=== PATIENT | male | born 1965 | race African-American/Black ===

== ENCOUNTER 2019-04-22 18:05 | Inpatient (IN) | payer OTHER ==
--- NOTE | 2019-04-22 19:15 | HP ---
COWS - Scale Resting Pulse: 1= OR 81-100 Sweatin= Chills/Flushing Restless Observation: 0= Sits Still Pupil Size: 0= Normal to Room Light (Pupils = 1 mm) Bone or Joint Aches: 0= None Runny Nose/ Eye Tearin= None GI Upset > 30mins: 2= Nausea/Diarrhea (Nausea w/o diarrhea) Tremor Observation: 2= Slight Tremor Visible Yawning Observation: 0= None Anxiety or Irritability: 1=Feels Anxious/Irritable Goose Flesh Skin: 0=Smooth Skin COWS Score: 7 CIWA Score Nausea/Vomitin Muscle Tremors: 3 Anxiety: 1-Mildly Anxious Agitation: 0-Normal Activity Paroxysmal Sweats: 2 (Slightly increased facial moisture) Orientation: 0-Oriented Tacttile Disturbances: 0-None Auditory Disturbances: 0-None Visual Disturbances: 0-None Headache: 0-None Present CIWA-Ar Total Score: 8 - Admission Criteria OASAS Guidelines: Admission for Medically Managed Detox: Requires at least one of the followin. CIWA greater than 12 2. Seizures within the past 24 hours 3. Delirium tremens within the past 24 hours 4. Hallucinations within the past 24 hours 5. Acute intervention needed for co occurring medical disorder 6. Acute intervention needed for co occurring psychiatric disorder 7. Severe withdrawal that cannot be handled at a lower level of care (continued vomiting, continued diarrhea, abnormal vital signs) requiring intravenous medication and/or fluids 8. Patient presents the following: Acute intervention needed for co-occurring med or psych disorder (HIV+; IDDM; TRU 0.066) Admission Criteria Met: Admission criteria met Admitting History and Physical - Smoking History Smoking history: Current every day smoker Have you smoked in the past 12 months: Yes Aproximately how many cigarettes per day: 20 Admission ROS S - HPI Chief Complaint: States I need detox. I'm tired of getting high. Allergies/Adverse Reactions: Allergies Allergy/AdvReac Type Severity Reaction Status Date / Time No Known Allergies Allergy Verified 04/22/19 19:38 History of Present Illness: 53 you presents seeking detox from heroin and alcohol. TRU: 0.066 UTox: + FEN/MOP BGM: 473 Longest sobriety: Only when incarcerated or in inpatient treatment. Denies seizures, blackouts, or overdoses. Alcohol use began at age 13. Currently using 3 - 16 oz beers daily. Occ drinks 1 pint liquor 1-2x/week. Last drink 1 hr. ago. [facility] has a Narcan kit at home. Heroin use began at age 13. Currently using 10 bags/day. Nasally. last used 1 hr ago. MMTP a few years ago. Suboxone - [facility] last took 2 weeks. [facility] supply was stolen. Discussed placing patient back on Suboxone and informed that restart would not start until 04/22, when withdrawal symptoms indicate moderate withdrawal w/ significant objective symptoms. Patient verbalizes an understanding that suboxone may not be started until after 10 am. Nicotine use began at age 13. Smokes 1 PPD. Cocaine use 2-4 days ago. PMHx: IDDM; HIV+; Asthma; Anemia; Pancreatitis. States not always compliant w/ medications. Pharmacy closed and will need to be called for medication evaluation. 11/28/18: EKG - Abn. Current EKG - wnl MHHx: Denies depression. Denies thoughts of harming self or others. SHx: Domiciles. HASA. [facility] has ACS issues r/t 5 year old daughter. Patient Name: Jimy Mason Date: 1965 Address: [address] [place] [address] Sex: Male Rx Written Rx Dispensed Drug Quantity Days Supply Prescriber Name buprenorphine-naloxone 8-2 mg sl film 90 30 Jayy Brandon B Payment Method Insurance * [facility] buprenorphine-naloxone 8-2 mg sl film 90 30 Jayy Brandon B Payment Method Insurance * [facility] buprenorphine-naloxone 8-2 mg sl film 90 30 Jayy Brandon B Payment Method Insurance * [facility] buprenorphine-naloxone 8-2 mg sl film 90 30 Jayy Brandon B Payment Method Insurance * [facility] buprenorphine-naloxone 8-2 mg sl film 90 30 Jayy Brandon B Payment Method [facility]-naloxone 8-2 mg sl film 90 30 Jayy Brandon B Payment Method Insurance * [facility]upren[facility]ine-naloxone 8-2 mg sl film 90 30 Jayy Brandon B Payment Method Insurance * [facility]uprenorphine-naloxone 8-2 mg sl film 90 30 Jayy Brandon B Payment Method Insurance * [facility]uprenorphine-naloxone 8-2 mg sl film 90 30 Jayy Brandon B Payment Method Insurance * [facility]uprenorphine-naloxone 8-2 mg sl film 90 30 Jayy Brandon B Payment Method Insurance * [facility] Date: 1965 Address: [address] [place] [address] Sex: Male Rx Written Rx Dispensed Drug Quantity Days Supply Prescriber Name buprenorphine-naloxone 8-2 mg sl film 90 30 Jayy Brandon B Payment Method Insurance * [facility] Date: 1965 Address: [address] [place] [address] Sex: Male Rx Written Rx Dispensed Drug Quantity Days Supply Prescriber Name buprenorphine-naloxone 8-2 mg sl film 90 30 Jayy Brandon B Payment Method Insurance * [facility] Exam Limitations: No Limitations - Ebola screening Have you traveled outside of the country in the last 21 days: No Have you had contact with anyone from an Ebola affected area: No Have you been sick,other than usual withdrawal symptoms: No Do you have a fever: No - Review of Systems Constitutional: Chills, Changes in sleep (Difficulty falling and staying asleep.), Unintentional Wgt. Loss EENT: reports: Blurred Vision Respiratory: reports: SOB at Rest (sometimes, r/t stuffy nose) Cardiac: reports: No Symptoms Reported GI: reports: Constipated (States BM's are hard.), Nausea : reports: No Symptoms Reported Musculoskeletal: reports: No Symptoms Reported Integumentary: reports: No Symptoms Reported Neuro: reports: Tremors Endocrine: reports: Increased Thirst Hematology: reports: Anemia, Other (HIV+) Psychiatric: reports: Orientated x3, Anxious Patient History - Patient Medical History Hx Anemia: No Hx Asthma: Yes (ON ALBUTEROL INHALER) Hx Chronic Obstructive Pulmonary Disease (COPD): No Hx Cancer: No Hx Cardiac Disorders: No Hx Congestive Heart Failure: No Hx Hypertension: No Hx Hypercholesterolemia: No Hx Pacemaker: No HX Cerebrovascular Accident: No Hx Seizures: No Hx Diabetes: No Hx Gastrointestinal Disorders: No Hx Liver Disease: No Hx Genitourinary Disorders: No Hx Sexually Transmitted Disorders: No Hx Renal Disease (ESRD): No Hx Thyroid Disease: No Hx Human Immunodeficiency Virus (HIV): Yes (SINCE 1995) Hx Hepatitis C: No Hx Depression: No Hx Suicide Attempt: No Hx Bipolar Disorder: No Hx Schizophrenia: No - Patient Surgical History Past Surgical History: No Anesthesia Reaction: No - PPD History Previous Implant?: Yes Documented Results: Negative w/proof Implanted On Prior [facility] Admission?: Yes PPD to be Administered?: Yes - Smoking Cessation Smoking history: Current every day smoker Have you smoked in the past 12 months: Yes Aproximately how many cigarettes per day: 20 Hx Chewing Tobacco Use: No Initiated information on smoking cessation: Yes 'Breaking Loose' booklet given: 04/22/19 - Substance & Tx. History Hx Alcohol Use: Yes Hx Substance Use: Yes Substance Use Type: Alcohol, Cocaine, Heroin, Opiates Hx Substance Use Treatment: Yes (detox, rehab, past MMTP; Current Suboxone) - Substances abused Alcohol Substance route: Oral Frequency: Daily Amount used: 4 or 5 cans of beer Age of first use: 13 Date of last use: 04/22/19 Heroin Substance route: Inhalation Frequency: Daily Amount used: 5 to 10 bags Age of first use: 13 Date of last use: 04/22/19 Admission Physical Exam S - Physical General Appearance: Yes: Mild Distress, Tremorous (Mild tremors), Sweating (Increased facial moisture), Anxious HEENTM: Yes: EOMI, Hearing grossly Normal, Normocephalic, Normal Voice, SHRUTHI (Pupils = 1 mm) Respiratory: Yes: Lungs Clear, Normal Breath Sounds, No Respiratory Distress Neck: Yes: No masses,lesions,Nodules, Supple Breast: Yes: Breast Exam Deferred Cardiology: Yes: Murmur, Irregular Abdominal: Yes: Normal Bowel Sounds, Non Tender Genitourinary: Yes: Within Normal Limits Back: Yes: Within Normal Limits Musculoskeletal: Yes: full range of Motion, Gait Steady Extremities: Yes: Normal Capillary Refill, Non-Tender, Tremors (Faint tremors) Neurological: Yes: accounting clerks supervisor II-XII NML intact, Fully Oriented, Alert, Motor Strength 5/5, Normal Mood/Affect Integumentary: Yes: Normal Color, Warm Lymphatic: Yes: Within Normal Limits - Diagnostic (1) Opioid dependence on agonist therapy Current Visit: Yes Status: Chronic Comment: Last taken 2 weeks ago. Urine tox + FEN/MOP (2) Diabetes mellitus, insulin dependent (IDDM), uncontrolled Current Visit: Yes Status: Chronic (3) Alcohol dependence with uncomplicated withdrawal Current Visit: Yes Status: Acute (4) Nicotine dependence Current Visit: Yes Status: Chronic Qualifiers: Nicotine product type: cigarettes Substance use status: uncomplicated Qualified Code(s): F17.210 - Nicotine dependence, cigarettes, uncomplicated (5) Weight loss Current Visit: Yes Status: Chronic (6) Asthma Current Visit: Yes Status: Chronic Qualifiers: Asthma severity: unspecified severity Asthma persistence: unspecified Asthma complication type: unspecified Qualified Code(s): J45.909 - Unspecified asthma, uncomplicated (7) GERD (gastroesophageal reflux disease) Current Visit: Yes Status: Chronic Qualifiers: Esophagitis presence: esophagitis presence not specified Qualified Code(s): K21.9 - Gastro-esophageal reflux disease without esophagitis (8) HIV (human immunodeficiency virus infection) Current Visit: Yes Status: Chronic Qualifiers: HIV symptom status: unspecified Qualified Code(s): B20 - Human immunodeficiency virus [HIV] disease (9) History of pancreatitis Current Visit: Yes Status: Chronic Cleared for Admission [facility] - Detox or Rehab [facility] Level of Care: Medically Managed Detox Regimen/Protocol: Librium Claeared for Rehab Admission: No Breathalyzer - Breathalyzer Breathalyzer: 0.066 Urine Drug Screen - Test Device Lot number: [id number] Expiration date: 01/15/21 - Control Is test valid?: Yes - Results Drug screen NEGATIVE: No Urine drug screen results: FEN-Fentanyl, MOP-Opiates Inpatient Rehab Admission - Rehab Decision to Admit Inpatient rehab admission?: No
[2019-04-22 19:36] VITALS: BMI 21.7
[2019-04-22] MEDS ORDERED: MENTHOL/PHENOL 1 EACH UD MM PRN (20:48)
[2019-04-22] MEDS ORDERED: BISMUTH SUBSALICYLATE 524 MG/30 ML UD PO PRN (20:48)
[2019-04-22] MEDS ORDERED: MAGNESIUM HYDROX 2400MG/30ML ORAL SUSPENSION 30 ML CUP PO PRN (20:48)
[2019-04-22] MEDS ORDERED: ACETAMINOPHEN 325 MG TABLET (FP) PO PRN ×2 (20:48)
[2019-04-22] MEDS ORDERED: IBUPROFEN 400 MG TABLET (FP) PO PRN (20:48)
[2019-04-22] MEDS ORDERED: MAGNESIUM CITRATE 300 ML BOTTLE PO PRN (20:48)
[2019-04-22] MEDS ORDERED: NICOTINE POLACRILEX 2 MG GUM BUC PRN (20:48)
[2019-04-22] MEDS ORDERED: MAG HYDROX/AL HYDROX/SIMETH 30 ML UNIT-DOSE CUP PO PRN (20:48)
[2019-04-22] MEDS ORDERED: ALBUTEROL SO4 HFA INHALER IH PRN (20:57)
[2019-04-22] MEDS: INSULIN SLIDING SCALE (NOVOLOG) 1 VIAL SQ SCH (21:20)
[2019-04-22] MEDS ORDERED: chlordiazePOXIDE 5 MG CAPSULE PO ONE (23:00)
[2019-04-22] MEDS: MELATONIN 5 MG TABLETS PO SCH (23:07)
[2019-04-22] MEDS: THIAMINE HCL 100 MG TABLET (FP) PO SCH (23:12)
[2019-04-23] MEDS ORDERED: METHOCARBAMOL 500 MG TABLET PO PRN (01:09)
[2019-04-23] MEDS: chlordiazePOXIDE HCL 25 MG CAPSULE PO SCH ×3 (06:31→22:42)
[2019-04-23] MEDS: INSULIN SLIDING SCALE (NOVOLOG) 1 VIAL SQ SCH ×4 (06:31→23:18)
[2019-04-23 09:14] LABS: HEMATOCRIT 32.1 % (35.4-49); HEMOGLOBIN 10.6 GM/dL (11.7-16.9); MCH 27.4 pg (25.7-33.7); MCHC 32.9 g/dl (32.0-35.9); MEAN CELL VOLUME 83.5 fl (80-96); PLATELET COUNT 179 K/MM3 (134-434); RBC 3.85 M/mm3 (4.00-5.60); RDW 15.5 % (11.9-15.9); WHITE BLOOD COUNT 2.3 K/mm3 (4.0-10.0)
[2019-04-23 09:23] LABS: ALBUMIN 3.2 g/dl (3.4-5.0); BILIRUBIN,TOTAL 0.9 mg/dL (0.2-1); BLOOD UREA NITROGEN 12.8 mg/dL (7-18); CALCIUM 8.6 mg/dL (8.5-10.1); POTASSIUM 3.8 mmol/L (3.5-5.1); TOT PROT 8.1 g/dl (6.4-8.2)
--- NOTE | 2019-04-23 10:31 | EKG ---
Test Reason : Blood Pressure : / mmHG Vent. Rate : 079 BPM Atrial Rate : 079 BPM P-R Int : 140 ms QRS Dur : 096 ms QT Int : 398 ms P-R-T Axes : 076 073 063 degrees QTc Int : 456 ms NORMAL SINUS RHYTHM NORMAL ECG NO PREVIOUS ECGS AVAILABLE Confirmed by Andrea Calhoun MD ([id number]) on 04/23/2019 10:30:58 AM Referred By: Kashif Zavala Confirmed By:Andrea Calhoun MD
--- NOTE | 2019-04-23 10:34 | PN ---
[facility] CIWA - CIWA Score Nausea/Vomitin Muscle Tremors: 2 Anxiety: 3 Agitation: 2 Paroxysmal Sweats: 1-Minimal Palms Moist Orientation: 0-Oriented Tacttile Disturbances: 1-Very Mild Itch/Numbness Auditory Disturbances: 0-None Visual Disturbances: 0-None Headache: 1-Very Mild CIWA-Ar Total Score: 12 [facility] Progress Note (SOAP) Subjective: alert,irritable,anxious,interrupted sleep,tremor,pain in the body,patient has been on suboxone I stop showed 8mgs/2 mgs sl film 90 Films for 30 days on 04/14/2019 mentioned it was stolen Objective: 04/23/19 10:29 Vital Signs Temperature 98.2 F 04/23/19 09:23 Pulse Rate 101 H 04/23/19 09:23 Respiratory Rate 17 04/23/19 09:23 Blood Pressure 116/82 04/23/19 09:23 O2 Sat by Pulse Oximetry (%) 04/23/19 10:31 Laboratory Last Values WBC 2.3 K/mm3 (4.0-10.0) L 04/23/19 07:40 RBC 3.85 M/mm3 (4.00-5.60) L 04/23/19 07:40 Hgb 10.6 GM/dL (11.7-16.9) L 04/23/19 07:40 Hct 32.1 % (35.4-49) L 04/23/19 07:40 MCV 83.5 fl (80-96) 04/23/19 07:40 MCH 27.4 pg (25.7-33.7) 04/23/19 07:40 MCHC 32.9 g/dl (32.0-35.9) 04/23/19 07:40 RDW 15.5 % (11.9-15.9) D 04/23/19 07:40 Plt Count 179 K/MM3 (134-434) 04/23/19 07:40 MPV 8.0 fl (7.5-11.1) 04/23/19 07:40 Sodium 138 mmol/L (136-145) 04/23/19 07:40 Potassium 3.8 mmol/L (3.5-5.1) 04/23/19 07:40 Chloride 102 mmol/L (98-107) 04/23/19 07:40 Carbon Dioxide 28 mmol/L (21-32) 04/23/19 07:40 Anion Gap 8 MMOL/L (8-16) 04/23/19 07:40 BUN 12.8 mg/dL (7-18) 04/23/19 07:40 Creatinine 1.0 mg/dL (0.55-1.3) 04/23/19 07:40 Est GFR (CKD-EPI)AfAm 97.77 04/23/19 07:40 Est GFR (CKD-EPI)NonAf 84.35 04/23/19 07:40 POC Glucometer 176 UNITS (80-120) 04/23/19 06:28 Random Glucose 178 mg/dL (74-106) H 04/23/19 07:40 Calcium 8.6 mg/dL (8.5-10.1) 04/23/19 07:40 Total Bilirubin 0.9 mg/dL (0.2-1) 04/23/19 07:40 AST 33 U/L (15-37) 04/23/19 07:40 ALT 17 U/L (13-61) 04/23/19 07:40 Alkaline Phosphatase 73 U/L (45-117) 04/23/19 07:40 Total Protein 8.1 g/dl (6.4-8.2) 04/23/19 07:40 Albumin 3.2 g/dl (3.4-5.0) L 04/23/19 07:40 Assessment: 04/23/19 10:31 withdrawal symptom Plan: continue detox librium regimen,suboxone 8 mgs/2mgs film sl tid,patient will follow up with his pmd for continuing suboxone maintenance after discharge
--- NOTE | 2019-04-23 10:44 | PN ---
S Progress Note Note: Laboratory Last Values WBC 2.3 K/mm3 (4.0-10.0) L 04/23/19 07:40 RBC 3.85 M/mm3 (4.00-5.60) L 04/23/19 07:40 Hgb 10.6 GM/dL (11.7-16.9) L 04/23/19 07:40 Hct 32.1 % (35.4-49) L 04/23/19 07:40 MCV 83.5 fl (80-96) 04/23/19 07:40 MCH 27.4 pg (25.7-33.7) 04/23/19 07:40 MCHC 32.9 g/dl (32.0-35.9) 04/23/19 07:40 RDW 15.5 % (11.9-15.9) D 04/23/19 07:40 Plt Count 179 K/MM3 (134-434) 04/23/19 07:40 MPV 8.0 fl (7.5-11.1) 04/23/19 07:40 Sodium 138 mmol/L (136-145) 04/23/19 07:40 Potassium 3.8 mmol/L (3.5-5.1) 04/23/19 07:40 Chloride 102 mmol/L (98-107) 04/23/19 07:40 Carbon Dioxide 28 mmol/L (21-32) 04/23/19 07:40 Anion Gap 8 MMOL/L (8-16) 04/23/19 07:40 BUN 12.8 mg/dL (7-18) 04/23/19 07:40 Creatinine 1.0 mg/dL (0.55-1.3) 04/23/19 07:40 Est GFR (CKD-EPI)AfAm 97.77 04/23/19 07:40 Est GFR (CKD-EPI)NonAf 84.35 04/23/19 07:40 POC Glucometer 176 UNITS (80-120) 04/23/19 06:28 Random Glucose 178 mg/dL (74-106) H 04/23/19 07:40 Calcium 8.6 mg/dL (8.5-10.1) 04/23/19 07:40 Total Bilirubin 0.9 mg/dL (0.2-1) 03/07/20 07:40 AST 33 U/L (15-37) 04/23/19 07:40 ALT 17 U/L (13-61) 04/23/19 07:40 Alkaline Phosphatase 73 U/L (45-117) 04/23/19 07:40 Total Protein 8.1 g/dl (6.4-8.2) 04/23/19 07:40 Albumin 3.2 g/dl (3.4-5.0) L 04/23/19 07:40 wbc is 2,300 probably due to chronic alcoholism and hiv glucoe 176 ,bgm monitoring with insulin coverage
[2019-04-23] MEDS: PRENATAL VITAMINS W/ FOLIC ACID TABLET (FP) PO SCH (11:15)
[2019-04-23] MEDS: PANTOPRAZOLE 40 MG TABLET PO SCH (11:15)
[2019-04-23] MEDS: NICOTINE 21 MG/24 HOURS TOPICAL PATCH TD SCH (11:40)
[2019-04-23] MEDS ORDERED: INSULIN SLIDING SCALE (NOVOLOG) 1 VIAL SQ ONE (11:42)
[2019-04-23] MEDS: BUPRENORPHINE/NALOXONE 8 MG/2 MG FILM PACKET SL SCH ×2 (15:00→23:12)
[2019-04-23] MEDS ORDERED: chlordiazePOXIDE HCL 10 MG CAPSULE PO PRN (21:06)
[2019-04-23] MEDS: MELATONIN 5 MG TABLETS PO SCH (22:42)
[2019-04-23] MEDS: THIAMINE HCL 100 MG TABLET (FP) PO SCH (23:21)
[2019-04-24] MEDS: chlordiazePOXIDE 5 MG CAPSULE PO SCH ×2 (06:55→13:30)
[2019-04-24] MEDS: BUPRENORPHINE/NALOXONE 8 MG/2 MG FILM PACKET SL SCH (06:55)
[2019-04-24] MEDS ORDERED: INSULIN SLIDING SCALE (NOVOLOG) 1 VIAL SQ ONE (06:59)
[2019-04-24] MEDS: PANTOPRAZOLE 40 MG TABLET PO SCH (10:28)
[2019-04-24] MEDS: PRENATAL VITAMINS W/ FOLIC ACID TABLET (FP) PO SCH (10:28)
[2019-04-24] MEDS: NICOTINE 21 MG/24 HOURS TOPICAL PATCH TD SCH (10:50)
--- NOTE | 2019-04-24 11:29 | PN ---
[facility] CIWA - CIWA Score Nausea/Vomitin-No Nausea/No Vomiting Muscle Tremors: 2 Anxiety: 1-Mildly Anxious Agitation: 2 Paroxysmal Sweats: 2 Orientation: 0-Oriented Tacttile Disturbances: 0-None Auditory Disturbances: 0-None Visual Disturbances: 0-None Headache: 0-None Present CIWA-Ar Total Score: 7 S Progress Note (SOAP) Subjective: irritable body aches sweats Objective: 04/24/19 11:28 Vital Signs Temperature 98.1 F 04/24/19 10:30 Pulse Rate 89 04/24/19 10:30 Respiratory Rate 20 04/24/19 10:30 Blood Pressure 123/91 04/24/19 10:30 O2 Sat by Pulse Oximetry (%) Laboratory Tests 04/22/19 04/23/19 04/23/19 20:14 06:28 07:40 WBC 2.3 L RBC 3.85 L Hgb 10.6 L Hct 32.1 L MCV 83.5 MCH 27.4 MCHC 32.9 RDW 15.5 D Plt Count 179 MPV 8.0 Sodium Potassium Chloride Carbon Dioxide Anion Gap BUN Creatinine Est GFR (CKD-EPI)AfAm Est GFR (CKD-EPI)NonAf POC Glucometer 473 176 Random Glucose Calcium Total Bilirubin AST ALT Alkaline Phosphatase Total Protein Albumin RPR Titer 04/23/19 04/23/19 04/23/19 07:40 07:40 11:36 WBC RBC Hgb Hct MCV MCH MCHC RDW Plt Count MPV Sodium 138 Potassium 3.8 Chloride 102 Carbon Dioxide 28 Anion Gap 8 BUN 12.8 Creatinine 1.0 Est GFR (CKD-EPI)AfAm 97.77 Est GFR (CKD-EPI)NonAf 84.35 POC Glucometer 372 Random Glucose 178 H Calcium 8.6 Total Bilirubin 0.9 AST 33 ALT 17 Alkaline Phosphatase 73 Total Protein 8.1 Albumin 3.2 L RPR Titer Nonreactive 04/23/19 04/23/19 04/24/19 16:26 23:16 06:58 WBC RBC Hgb Hct MCV MCH MCHC RDW Plt Count MPV Sodium Potassium Chloride Carbon Dioxide Anion Gap BUN Creatinine Est GFR (CKD-EPI)AfAm Est GFR (CKD-EPI)NonAf POC Glucometer 366 411 366 Random Glucose Calcium Total Bilirubin AST ALT Alkaline Phosphatase Total Protein Albumin RPR Titer aaox3 ambulating no acute distress Assessment: 04/24/19 11:29 withdrawals Plan: continue detox increase fluids
[2019-04-24] MEDS: INSULIN SLIDING SCALE (NOVOLOG) 1 VIAL SQ SCH (11:30)
--- NOTE | 2019-04-24 14:18 | PN ---
S Progress Note Note: pt is refusing to comply with his detox regimen. pt states he rather go now. Pt was advised to relapse, seizures, DT, OD and or loss, pt chose to sign out AMA.
--- NOTE | 2019-04-24 14:19 | DS ---
[facility] Detox Discharge Summary Admission Date: 04/22/19 - History Present History: Alcohol Dependence, Opioid Dependence - Physical Exam Results Vital Signs: Vital Signs Temperature 98.1 F 04/24/19 10:30 Pulse Rate 89 04/24/19 10:30 Respiratory Rate 04/24/19 10:30 Blood Pressure 123/91 04/24/19 10:30 O2 Sat by Pulse Oximetry (%) Pertinent Admission Physical Exam Findings: Vital Signs Temperature 98.1 F 04/24/19 10:30 Pulse Rate 89 04/24/19 10:30 Respiratory Rate 04/24/19 10:30 Blood Pressure 123/91 04/24/19 10:30 O2 Sat by Pulse Oximetry (%) Laboratory Tests 04/22/19 04/23/19 04/23/19 20:14 06:28 07:40 WBC 2.3 L RBC 3.85 L Hgb 10.6 L Hct 32.1 L MCV 83.5 MCH 27.4 MCHC 32.9 RDW 15.5 D Plt Count 179 MPV 8.0 Sodium Potassium Chloride Carbon Dioxide Anion Gap BUN Creatinine Est GFR (CKD-EPI)AfAm Est GFR (CKD-EPI)NonAf POC Glucometer 473 176 Random Glucose Calcium Total Bilirubin AST ALT Alkaline Phosphatase Total Protein Albumin RPR Titer 04/23/19 04/23/19 04/23/19 07:40 07:40 11:36 WBC RBC Hgb Hct MCV MCH MCHC RDW Plt Count MPV Sodium 138 Potassium 3.8 Chloride 102 Carbon Dioxide 28 Anion Gap 8 BUN 12.8 Creatinine 1.0 Est GFR (CKD-EPI)AfAm 97.77 Est GFR (CKD-EPI)NonAf 84.35 POC Glucometer 372 Random Glucose 178 H Calcium 8.6 Total Bilirubin 0.9 AST 33 ALT 17 Alkaline Phosphatase 73 Total Protein 8.1 Albumin 3.2 L RPR Titer Nonreactive 04/23/19 04/23/19 04/24/19 16:26 23:16 06:58 WBC RBC Hgb Hct MCV MCH MCHC RDW Plt Count MPV Sodium Potassium Chloride Carbon Dioxide Anion Gap BUN Creatinine Est GFR (CKD-EPI)AfAm Est GFR (CKD-EPI)NonAf POC Glucometer 366 411 366 Random Glucose Calcium Total Bilirubin AST ALT Alkaline Phosphatase Total Protein Albumin RPR Titer aaox3 ambulating no acute distress - Treatment Hospital Course: Rehab Referral Accepted - Medication Discharge Medications: Ambulatory Orders Cyclobenzaprine HCl [Flexeril -] 10 mg PO HS 08/12/15 Albuterol Sulfate Inhaler - [Ventolin HFA Inhaler -] 2 inh PO Q6H PRN #1 inhaler 08/14/15 Fluticasone/Salmeterol [Advair 250-50 Diskus] 2 each IH BID #1 disk.w.dev 08/14/15 Omeprazole [Prilosec] 40 mg PO DAILY #30 capsule. 08/14/15 Insulin Glargine,Hum.rec.anlog [Gerald Garcia U-100] 20 unit SQ DAILY 04/22/19 Suboxone 8Mg/2Mg Sl Film - 1 film SL TID 04/22/19 - AMA Did Patient Leave Against Medical Advice: Yes
[2019-04-24 14:34] VITALS: PULSE 83; TEMP 97.9
[2019-04-24 14:35] VITALS: BP 165/96
[2019-04-25] MEDS ORDERED: chlordiazePOXIDE HCL 10 MG CAPSULE PO PRN
[2019-04-25] MEDS ORDERED: chlordiazePOXIDE HCL 10 MG CAPSULE PO SCH (05:00)
[2019-04-26] MEDS ORDERED: chlordiazePOXIDE HCL 10 MG CAPSULE PO ONE (05:00)
== END 2019-04-24 14:35 | disposition left against medical advice (07) | DRG 770 ==
LOC: YASAS 18:05 → Y6N 19:26
PROVIDERS: ADMIT Allergy & Immunology; ATTEND Allergy & Immunology
PROC: HZ2ZZZZ Detoxification Services for Substance Abuse Treatment (ICD-10-PCS; principal; 2019-04-22)
DX: F10.230 Alcohol dependence with withdrawal, uncomplicated (principal); F11.20 Opioid dependence, uncomplicated; F14.20 Cocaine dependence, uncomplicated; F17.210 Nicotine dependence, cigarettes, uncomplicated; Z21 Asymptomatic human immunodeficiency virus [HIV] infection status; D64.9 Anemia, unspecified; E11.65 Type 2 diabetes mellitus with hyperglycemia; Z79.4 Long term (current) use of insulin; J45.909 Unspecified asthma, uncomplicated; R63.4 Abnormal weight loss; Z68.21 Body mass index [BMI] 21.0-21.9, adult; Z87.19 Personal history of other diseases of the digestive system
CPT/HCPCS: 36415; 80053; 82962; 85027; 86593; 93005; 93010